=== PATIENT | female | born 1970 | race Two or more races ===

== ENCOUNTER → 2017-05-12 | Outpatient (CLI) | payer OTHER | LOC: FIMAGING 09:43 | PROVIDERS: ATTEND Family Medicine | DX: Z13.29 Encounter for screening for other suspected endocrine disorder (principal); N64.4 Mastodynia; Z85.3 Personal history of malignant neoplasm of breast | CPT/HCPCS: G0204 ==

== ENCOUNTER → 2017-06-17 | Outpatient (CLI) | payer OTHER | LOC: CIMAGING 15:11 | PROVIDERS: ATTEND Internal Medicine Hematology & Oncology | DX: R59.0 Localized enlarged lymph nodes (principal); M79.602 Pain in left arm; M79.89 Other specified soft tissue disorders; Z85.3 Personal history of malignant neoplasm of breast | CPT/HCPCS: 93971-PO ==

== ENCOUNTER → 2017-06-30 | Outpatient (CLI) | payer OTHER ==
[~2017-06-30] MED LIST: LIDOCAINE 1% 300 MG/30 ML SDV ONE
[2017-07-07 08:53] LABS: ACCESSION # HR17-36792; INTERPRETATION See Comments
== END ==
LOC: FIMAGING 12:31
PROVIDERS: ATTEND Internal Medicine Hematology & Oncology
PROC: 07B63ZX Excision of Left Axillary Lymphatic, Percutaneous Approach, Diagnostic (ICD-10-PCS; principal; 2017-06-30)
DX: C50.912 Malignant neoplasm of unspecified site of left female breast (principal)

== ENCOUNTER → 2017-07-22 | Outpatient (CLI) | payer OTHER ==
[~2017-07-22] MED LIST changes: +GADOBUTROL 10 ML VIAL IVP ONE; -LIDOCAINE 1% 300 MG/30 ML SDV ONE
== END ==
LOC: FIMAGING 07:08
PROVIDERS: ATTEND Radiology Radiation Oncology
DX: R51 Headache (principal); C50.919 Malignant neoplasm of unspecified site of unspecified female breast
CPT/HCPCS: A9585

== ENCOUNTER 2017-08-07 08:34 | Day surgery (SDC) | payer OTHER ==
[2017-08-07] MEDS ORDERED: LIDOCAINE 1% 300 MG/30 ML SDV ONE (09:15)
[2017-08-07] MEDS ORDERED: BACITRACIN ZINC 14.2 GM OINTTUBE TP ONE (09:15)
[2017-08-07] MEDS ORDERED: BUPIVACAINE 0.5% 30 ML SDV ONE (09:16)
[2017-08-07] MEDS ORDERED: SODIUM BICARBONATE 10 MEQ/10 ML SYR IVP ONE (09:16)
[2017-08-07] MEDS ORDERED: ceFAZolin 2 GM/DEXTROSE 100 ML IV ONE (09:26)
[2017-08-07] MEDS ORDERED: LR 1,000 ML IV ONE (09:36)
[2017-08-07] MEDS ORDERED: LIDOCAINE 1% 2 ML INJ ID PRN (09:36)
[2017-08-07] MEDS ORDERED: LIDOCAINE 2% 5 ML SDV ONE (11:11)
[2017-08-07] MEDS ORDERED: PROPOFOL 200 MG/20 ML VIAL ONE (11:11)
[2017-08-07] MEDS ORDERED: fentaNYL 100 MCG/2 ML INJ ONE (11:11)
--- NOTE | 2017-08-07 11:39 | PDHPUP ---
History & Physical Update H&P update statement: This history and physical update is based on an assessment of the patient which was completed after admission or registration (within 24 hours), but prior to the surgery/procedure. H&P update: H&P reviewed & patient examined, no change in patient's condition since H&P completed
[2017-08-07] MEDS ORDERED: MIDAZOLAM 2 MG/2 ML VIAL ONE (11:49)
[2017-08-07] MEDS ORDERED: MIDAZOLAM 2 MG/2 ML VIAL IVP ONE (11:51)
--- NOTE | 2017-08-07 11:52 | PDANEPAE ---
ANE History of Present Illness Patient presents for right sided port placement ANE Past Medical History - Pulmonary History Hx Oxygen in Use at Home: No Hx Sleep Apnea: No ANE Review of Systems Review of Systems: ANE Patient History - Allergies Allergies/Adverse Reactions: No Known Allergies Allergy (Unverified 10/16/09 13:47) - Home Medications Home medications: home medication list seen and reviewed Home Medications: Anti Nausea Med 11/16/09 [Last Taken Unknown] - NPO status NPO Status: no food or drink >8 hours NPO Since - Liquids (Date): 08/07/17 NPO Since - Liquids (Time): 07:00 NPO Since - Solids (Date): 08/27/17 NPO Since - Solids (Time): 17:00 - Anes Hx Anes Hx: post operative nausea - Smoking Hx Smoking Status: Never smoked ANE Labs/Vital Signs - Vital Signs Blood Pressure: 127/78 Heart Rate: 97 Respiratory Rate: 18 O2 Sat (%): 97 Height: 152.4 cm Weight: 60.781 kg ANE Physical Exam - Airway Neck exam: FROM Mallampati Score: Class 2 Mouth exam: normal dental/mouth exam - Pulmonary Pulmonary: no respiratory distress - Cardiovascular Cardiovascular: regular rate and rhythym - ASA Status ASA Status: II ANE Anesthesia Plan Anesthesia Plan: GA w LMA (RBA discussed)
[2017-08-07] MEDS ORDERED: PROPOFOL/EMULSION 500 MG/50 ML BOTTLE IV ONE (12:01)
[2017-08-07] MEDS ORDERED: ONDANSETRON 4 MG/2 ML VIAL ONE (12:12)
[2017-08-07] MEDS ORDERED: DEXAMETHASONE 4 MG/ML VIAL ONE (12:12)
[2017-08-07] MEDS ORDERED: ceFAZolin 1 GM VIAL ONE ×2 (12:12)
[2017-08-07] MEDS ORDERED: NALOXONE HCL 0.4 MG/ML INJ IVP PRN (12:34)
[2017-08-07] MEDS ORDERED: ONDANSETRON 4 MG/2 ML VIAL IVP PRN (12:34)
[2017-08-07] MEDS ORDERED: fentaNYL 100 MCG/2 ML INJ IVP PRN (12:34)
[2017-08-07] MEDS ORDERED: LR 500 ML IV PRN (12:34)
--- NOTE | 2017-08-07 12:59 | POSTANESTH ---
Post Anesthetic Evaluation Cardiovascular Status: Normal, Stable Respiratory Status: Normal, Stable Level of Consciousness/Mental Status: Can Participate in Eval Pain Control: Adequate, Prn Tx Ordered Nausea/Vomiting Control: Adequate, Prn Tx Ordered Complications Possibly Related to Anesthesia: None Noted
--- NOTE | 2017-08-07 13:11 | POSTOPPROG ---
Post Op Note Date of Operation: 08/07/17 Surgeon: Franki Rico Anesthesiologist: waylon Anesthesia: GET(General Endotracheal) Pre-op Diagnosis: recurrent breast cancer Post-op Diagnosis: same Indication: chemo access Procedure: rt subclavian port with flouro Findings: good position and flow Inf/Abcess present in the surg proc area at time of surgery?: No Depth: Deep Incisional (Fascial) EBL: Minimal Complications: 0
[2017-08-07] MEDS ORDERED: OXYCODONE/APAP 5/325 TAB PO PRN (13:18)
[2017-08-07 13:19] VITALS: TEMP 96.8
[2017-08-07 14:03] VITALS: BP 127/82; PULSE 92; RESP 15; O2SAT 99
--- NOTE | 2017-08-09 12:47 | GOP ---
[f rep st] OPERATIVE REPORT DATE OF OPERATION: 08/07/2017 SURGEON: Franki Rico MD LAMINATOR PREFORMS: None. ANESTHESIOLOGIST: Dr. Garcia. PREOPERATIVE DIAGNOSIS: POSTOPERATIVE DIAGNOSIS: PROCEDURE PERFORMED: Right subclavian port placement for chemotherapy access using fluoroscopic guid ance. FINDINGS: The patient was found to have good flow and good position. ESTIMATED BLOOD LOSS: Less than 20 cc. DESCRIPTION OF PROCEDURE: Patient was taken to the operating room where she received satisfactory ge neral endotracheal anesthesia by Dr. Garcia. Placed in supine position, prepped and draped in usual s terile fashion, then placed in Trendelenburg. A single stick was made in the right subclavian vein. Guidewire was introduced. Position was confirmed with fluoroscopy. A subcu pocket was made in the right anterior chest using the old previous port site pocket. Port tubing was passed from that pocke t to the subclavian insertion site, trimmed to the appropriate length using fluoroscopic guidance and introduced with the introducer sheath and dilator system over the guidewire. Good backflow was achi eved. The port was secured to the fascia with 3-0 Vicryl. Pocket was closed with 3-0 Vicryl for the subcu and a 4-0 Prolene subcuticular stitch. The entrance site was closed with Prolene mattress sut ure. The port was again flushed with heparin and saline and appeared to function well. She tolerate d the procedure well, was taken to the recovery room in good condition. There were no complications. /[id number]/MODL
== END 2017-08-07 13:46 | disposition home or self-care (01) ==
LOC: FSGY 08:34
PROVIDERS: ATTEND Surgery
PROC: B5161ZA Fluoroscopy of Right Subclavian Vein using Low Osmolar Contrast, Guidance (ICD-10-PCS; principal; 2017-08-07 10:15)
PROC: 0JH60XZ Insertion of Tunneled Vascular Access Device into Chest Subcutaneous Tissue and Fascia, Open Approach (ICD-10-PCS; principal; 2017-08-07 10:15)
PROC: 02HV33Z Insertion of Infusion Device into Superior Vena Cava, Percutaneous Approach (ICD-10-PCS; principal; 2017-08-07 10:15)
DX: C77.3 Secondary and unspecified malignant neoplasm of axilla and upper limb lymph nodes (principal); C50.912 Malignant neoplasm of unspecified site of left female breast
CPT/HCPCS: C1788; J0690; J1100; J1642; J2250; J2405; J2704; J3010

== ENCOUNTER → 2017-11-27 | Outpatient (CLI) | payer OTHER | LOC: BRMIMAGING 08:37 | PROVIDERS: ATTEND Internal Medicine Hematology & Oncology | DX: K80.20 Calculus of gallbladder without cholecystitis without obstruction (principal); K76.0 Fatty (change of) liver, not elsewhere classified; C50.912 Malignant neoplasm of unspecified site of left female breast | CPT/HCPCS: 76705-PO ==

== ENCOUNTER 2017-11-29 05:59 | Emergency (ER) | payer OTHER ==
[2017-11-29 06:06] VITALS: RESP 18; TEMP 98.1; O2SAT 98
[2017-11-29 06:39] LABS: PLATELET COUNT 216 10^3/uL (150-400)
--- NOTE | 2017-11-29 06:54 | EDPHY ---
H & P Stated Complaint: nausea, vomiting, back pain, oncologist recommended blood tests Time Seen by Provider: 11/29/17 06:26 HPI/ROS: Chief Complaint: Back pain, nausea HPI: 47-year-old woman with a history of recurrent breast cancer, currently under the care of Dr. Hoang. Patient has been having intermittent right-sided back pain with nausea vomiting for the past couple of weeks. She had an ultrasound on Thursday which showed gallstones with inflammation. Dr. Rico was consulted in the plan is for an elective outpatient cholecystectomy. The patient was started on Augmentin. She last had chemo 7 days ago in should be at her sarah. Patient woke this morning at 2 o'clock in the morning with severe right back pain exactly like the pain that she been having. She took a pain pill in the pain resolved after about 30 min, however she continued to have nausea throughout the morning which did not improved. She called her oncologist, Dr. Hoang, who instructed her to come to the emergency department for further evaluation. I received a phone call from Dr. Marroquin with requested the patient have a CBC done to see if she is at her sarah and she if she needs any further treatment. Currently the patient states she feels 100% improved. She does not have any pain. He is not currently have any nausea. She denies fevers or chills. No chest pain or shortness of breath. ROS: 10 point Review of Systems is negative except as noted in the HPI. PMH: Recurrent breast cancer, gallstones Social History: No smoking, no alcohol, no recreational drug use Family History: non-contributory Physical Exam: Gen: Awake, Alert, No Distress HEENT: Nose: no rhinorrhea Eyes: PERRLA, EOMI Mouth: Moist mucosa Neck: Supple, no JVD Chest: nontender, lungs clear to auscultation Heart: S1, S2 normal, no murmur Abd: Soft, non-tender, no guarding Back: no CVA tenderness, no midline tenderness Ext: no edema, non-tender Skin: no rash Neuro: CN II-XII intact, Sensation grossly intact, Strength 5/5 in bilateral upper and lower extremities - Personal History LMP (Females 10-55): Over 28 Days Ago Current Tetanus/Diphtheria Vaccine: Yes - Medical/Surgical History Hx Asthma: No Hx Chronic Respiratory Disease: No Hx Diabetes: No Hx Cardiac Disease: No Hx Renal Disease: No Hx Cirrhosis: No Hx Alcoholism: No Hx HIV/AIDS: No Hx Splenectomy or Spleen Trauma: No Other PMH: PMHx: breast cancer, gall stones. PSHx: lumpectomy, fibroids removed , 2 c sections - Social History Smoking Status: Never smoked Constitutional: Initial Vital Signs Temperature (C) 36.7 C 11/29/17 06:02 Heart Rate 72 11/29/17 06:02 Respiratory Rate 18 11/29/17 06:02 Blood Pressure 122/81 H 11/29/17 06:02 O2 Sat (%) 98 11/29/17 06:02 Allergies/Adverse Reactions: No Known Allergies Allergy (Unverified 10/16/09 13:47) Home Medications: Medication Instructions Recorded NK [No Known Home Meds] 11/29/17 Medical Decision Making ED Course/Re-evaluation: I have discussed with Dr. Hoang. She is agreement that as the patient's pain is resolved and her nausea is resolved no further treatment is needed. She would like a CBC done to see if she is neutropenic or will require any Neupogen at this time. I have relayed to her that her white count is currently 3.11 with 65% segmented neutrophils. Dr. Marroquin is happy with the plan to discharge to home. The patient will call her for any returns of pain or any other concerns. The patient will follow up with Dr. Rico this week. - Data Points Laboratory Results: Laboratory Results 11/29/17 06:31 11/29/17 06:31 WBC 3.11 10^3/uL L 10^3/uL (3.80-9.50) RBC 3.60 10^6/uL L 10^6/uL (4.18-5.33) Hgb 11.5 g/dL L g/dL (12.6-16.3) Hct 33.2 % L % (38.0-47.0) MCV 92.2 fL fL (81.5-99.8) MCH 31.9 pg pg (27.9-34.1) MCHC 34.6 g/dL g/dL (32.4-36.7) RDW 13.2 % % (11.5-15.2) Plt Count 216 10^3/uL 10^3/uL (150-400) MPV 10.4 fL fL (8.7-11.7) Neut % (Auto) 65.6 % % (39.3-74.2) Lymph % (Auto) 28.6 % % (15.0-45.0) [place] % (Auto) 2.6 % L % (4.5-13.0) Eos % (Auto) 1.9 % % (0.6-7.6) Baso % (Auto) 1.0 % % (0.3-1.7) Nucleat RBC Rel Count 0.0 % % (0.0-0.2) Absolute Neuts (auto) 2.04 10^3/uL 10^3/uL (1.70-6.50) Absolute Lymphs (auto) 0.89 10^3/uL L 10^3/uL (1.00-3.00) Absolute Monos (auto) 0.08 10^3/uL L 10^3/uL (0.30-0.80) Absolute Eos (auto) 0.06 10^3/uL 10^3/uL (0.03-0.40) Absolute Basos (auto) 0.03 10^3/uL 10^3/uL (0.02-0.10) Absolute Nucleated RBC 0.00 10^3/uL 10^3/uL (0-0.01) Immature Gran % 0.3 % % (0.0-1.1) Immature Gran # 0.01 10^3/uL 10^3/uL (0.00-0.10) Departure - Departure Disposition: Home, Routine, Self-Care Clinical Impression: Nausea, Biliary colic Condition: Good Instructions: Acute Nausea and Vomiting (ED) Additional Instructions: Please call Dr. Hoang immediately if your pain returns or you of uncontrolled nausea or vomiting. Referrals: Georgiana Arboleda MD [Primary Care Provider] - As per Instructions Marta Hoang MD [Medical Doctor] - As per Instructions
[2017-11-29 07:06] VITALS: BP 125/81; PULSE 82
== END 2017-11-29 07:06 | disposition home or self-care (01) ==
DX: K80.50 Calculus of bile duct without cholangitis or cholecystitis without obstruction (principal); Z85.3 Personal history of malignant neoplasm of breast

== ENCOUNTER 2017-12-04 09:15 | Day surgery (SDC) | payer OTHER ==
--- NOTE | 2017-12-01 21:20 | GHP ---
[f rep st] HISTORY AND PHYSICAL DATE OF ADMISSION: 12/03/2017 HISTORY OF PRESENT ILLNESS: The patient is a very pleasant female with recurrent breast cancer, who was recently seen in the emergency department and diagnosed with cholelithiasis. The patient reports she has had 2-3 attacks over the last couple months and has been seen in urgent care and emergency r oom. Had ultrasound recently which showed a stone in the gallbladder neck. The patient reports she has had intermittent pain the starts on the right side of her back and migrates to the left, accompan ied by nausea and vomiting. She was seen twice in the last week at [facility]. Dr. Courtney beth was briefly consulted during her last emergency department visit, and the patient elected to foll ow up as an outpatient to discuss possible cholecystectomy. She has had 2 previous C-sections, as we ll as surgery for fibroid removal, all done through a low suprapubic incision; otherwise no other abd ominal surgeries. Today, she reports she is feeling well; she placed herself on a light diet over in hopes to mitigate symptoms from the cholelithiasis. The patient's history is complicated, as she is undergoing treatment currently for recurrent breast c ancer. She was originally diagnosed in 2008. She underwent lumpectomy with axillary node dissection , received chemotherapy. In April 2017, she had pain and swelling in her left arm which was caused by an enlarged abnormal lymph node inferior to the left clavicle. This is recurrent cancer. She is cu rrently undergoing chemotherapy. PAST MEDICAL HISTORY: Breast cancer. ALLERGIES: No known drug allergies. MEDICATIONS: Ativan, Vicodin occasionally for pain, vitamin D3. PAST SURGICAL HISTORY: , fibroid removal, hemorrhoidectomy, recent port placement. SOCIAL HISTORY: The patient is a teacher in the [employer], 2 children, , never a smoker, no alcohol use. PHYSICAL EXAMINATION: GENERAL: Comfortable, nontoxic, nonjaundiced. HEAD AND NECK: No palpable ma sses, no lymphadenopathy. CHEST: CTA bilaterally. HEART: Regular rhythm and rate. ABDOMEN: Soft , nontender, negative Harding sign. EXTREMITIES: No lower extremity edema. Normal dorsalis pedis pu lse to palpation. LABORATORY STUDIES: From today at the time of this dictation, December 01, 2016, demonstrates white bl ood cell count of 2.0, hematocrit of 33, grossly normal liver function tests, other than a mildly yogesh vated alanine aminotransferase. RADIOLOGY: Ultrasound from the emergency department visit last week was reviewed, which shows multip le stones with a large stone in the gallbladder neck. Recent CT abdomen and pelvis report reviewed, which was negative for any acute findings and/or metastatic disease. IMPRESSION: Cholelithiasis/cholecystitis. PLAN: The patient was seen and examined by Dr. Rico in our office today on December 01, 2016, and had labs after her visit, which are noted above. The patient is tentatively scheduled for surgery 2016, although these laboratory studies will be reviewed by Dr. Rico prior to surgery. Concer reina is obviously the low white blood cell count. Risks of the surgery including common bile duct injury, bleeding, infection, bowel injury, were empha sized to the patient today, and the patient elects to proceed with scheduling surgery. /[id number]/MODL
[~2017-12-04 09:15] MED LIST changes: -GADOBUTROL 10 ML VIAL IVP ONE; +cefOXitin SODIUM 2 GM in D5W 100 ML IV ONE
--- NOTE | 2017-12-04 09:29 | PDHPUP ---
History & Physical Update H&P update statement: This history and physical update is based on an assessment of the patient which was completed after admission or registration (within 24 hours), but prior to the surgery/procedure. updated
[2017-12-04] MEDS ORDERED: cefOXitin SODIUM 2 GM in D5W 100 ML IV ONE (10:00)
[2017-12-04 10:27] VITALS: PULSE 79
--- NOTE | 2017-12-04 10:39 | PDANEPAE ---
ANE History of Present Illness Patient with a history of Breast Cancer stage 3 from 2008. No metastatic disease. Otherwise healthy, no issues with heart, kidneys. She has had general anesthesia with no nausea or vomiting. Mild cough no mucous, no fevers. She received two shots for her neutropenia last on 12/02, labs reviewed she is not neutropenic. ANE Past Medical History - Cardiovascular History Hx Hypertension: No Hx Arrhythmias: No Hx Chest Pain: No Hx Coronary Artery / Peripheral Vascular Disease: No Hx CHF / Valvular Disease: No Hx Palpitations: No - Pulmonary History Hx COPD: No Hx Asthma/Reactive Airway Disease: No Hx Recent Upper Respiratory Infection: No Hx Oxygen in Use at Home: No Hx Sleep Apnea: No Sleep Apnea Screening Result - Last Documented: Negative - Neurologic History Hx Cerebrovascular Accident: No Hx Seizures: No Hx Dementia: No - Endocrine History Hx Diabetes: No Endocrine History Comment: HX OF GESTATIONAL DIABETIES 2011, RESOLVED NOW - Renal History Hx Renal Disorders: No - Liver History Hx Hepatic Disorders: No - Neurological & Psychiatric Hx Hx Neurological and Psychiatric Disorders: No - Cancer History Hx Cancer: Yes Cancer History Comment: METASTATIC BREAST CA 2008 AND 2016 - Congenital Disorder History Hx Congenital Disorders: No - GI History Hx Gastrointestinal Disorders: No - Other Health History Other Health History: CHEMO RELATED ANEMIA - Surgical History Prior Surgeries: LUMPECTOMY 2008. R CHEST POWER PORT PLACEMENT 2008 & 07/2017. FIBROID REMOVAL 2006. 2010 &2011 ANE Review of Systems Review of Systems: - Exercise capacity METS (RN): 4 METS ANE Patient History - Allergies Allergies/Adverse Reactions: No Known Allergies Allergy (Verified 12/04/17 09:51) - Home Medications Home Medications: NK [No Known Home Meds] 11/29/17 [Last Taken Unknown] - NPO status NPO Since - Liquids (Date): 12/04/17 NPO Since - Liquids (Time): 07:30 NPO Since - Solids (Date): 12/03/17 NPO Since - Solids (Time): 20:00 - Smoking Hx Smoking Status: Never smoked - Family Anes Hx Family Hx Anesthesia Complications: NA ANE Labs/Vital Signs - Vital Signs Blood Pressure: 109/66 Heart Rate: 79 Respiratory Rate: 16 O2 Sat (%): 96 Height: 154.94 cm Weight: 63.503 kg ANE Physical Exam - Airway Neck exam: FROM Mallampati Score: Class 1 Mouth exam: normal dental/mouth exam, small mouth opening - Pulmonary Pulmonary: no respiratory distress - Cardiovascular Cardiovascular: regular rate and rhythym - ASA Status ASA Status: II
--- NOTE | 2017-12-04 10:42 | PDANEPAE ---
ANE Past Medical History - Cardiovascular History Hx Hypertension: No Hx Arrhythmias: No Hx Chest Pain: No Hx Coronary Artery / Peripheral Vascular Disease: No Hx CHF / Valvular Disease: No Hx Palpitations: No - Pulmonary History Hx COPD: No Hx Asthma/Reactive Airway Disease: No Hx Recent Upper Respiratory Infection: No Hx Oxygen in Use at Home: No Hx Sleep Apnea: No Sleep Apnea Screening Result - Last Documented: Negative - Neurologic History Hx Cerebrovascular Accident: No Hx Seizures: No Hx Dementia: No - Endocrine History Hx Diabetes: No Endocrine History Comment: HX OF GESTATIONAL DIABETIES 2011, RESOLVED NOW - Renal History Hx Renal Disorders: No - Liver History Hx Hepatic Disorders: No - Neurological & Psychiatric Hx Hx Neurological and Psychiatric Disorders: No - Cancer History Hx Cancer: Yes Cancer History Comment: METASTATIC BREAST CA 2008 AND 2016 - Congenital Disorder History Hx Congenital Disorders: No - GI History Hx Gastrointestinal Disorders: No - Other Health History Other Health History: CHEMO RELATED ANEMIA - Surgical History Prior Surgeries: LUMPECTOMY 2008. R CHEST POWER PORT PLACEMENT 2008 & 07/2017. FIBROID REMOVAL 2006. 2010 &2011 ANE Review of Systems Review of Systems: - Exercise capacity METS (RN): 4 METS ANE Patient History - Allergies Allergies/Adverse Reactions: No Known Allergies Allergy (Verified 12/04/17 09:51) - Home Medications Home Medications: NK [No Known Home Meds] 11/29/17 [Last Taken Unknown] - NPO status NPO Since - Liquids (Date): 12/04/17 NPO Since - Liquids (Time): 07:30 NPO Since - Solids (Date): 12/03/17 NPO Since - Solids (Time): 20:00 - Smoking Hx Smoking Status: Never smoked - Family Anes Hx Family Hx Anesthesia Complications: NA ANE Labs/Vital Signs - Vital Signs Blood Pressure: 109/66 Heart Rate: 79 Respiratory Rate: 16 O2 Sat (%): 96 Height: 154.94 cm Weight: 63.503 kg ANE Anesthesia Plan Anesthesia Plan: general endotracheal anesthesia
[2017-12-04] MEDS ORDERED: ALBUTEROL HFA ANES ONLY 200 PUFFS/8.5 GM MDI IH ONE (10:46)
[2017-12-04] MEDS ORDERED: PROPOFOL 200 MG/20 ML VIAL ONE (10:46)
[2017-12-04] MEDS ORDERED: ROCURONIUM 50 MG/5 ML VIAL ONE (10:46)
[2017-12-04] MEDS ORDERED: fentaNYL 100 MCG/2 ML INJ ONE ×2 (10:46→12:40)
[2017-12-04] MEDS ORDERED: MIDAZOLAM 2 MG/2 ML VIAL ONE (10:49)
[2017-12-04] MEDS ORDERED: BUPIVACAINE 0.5% 30 ML SDV ONE (11:11)
[2017-12-04] MEDS ORDERED: ONDANSETRON 4 MG/2 ML VIAL ONE (11:21)
[2017-12-04] MEDS ORDERED: PROMETHAZINE HCL 25 MG/ML INJ IVP PRN (11:27)
[2017-12-04] MEDS ORDERED: NEOSTIGMINE METHYLSULFATE 3 MG/3 ML SYR ONE (11:27)
[2017-12-04] MEDS ORDERED: OXYCODONE/APAP 5/325 TAB PO PRN ×2 (11:27→15:19)
[2017-12-04] MEDS ORDERED: NALOXONE HCL 0.4 MG/ML INJ IVP PRN ×2 (11:27→15:42)
[2017-12-04] MEDS ORDERED: ONDANSETRON 4 MG/2 ML VIAL IVP PRN ×2 (11:27→15:42)
[2017-12-04] MEDS ORDERED: GLYCOPYRROLATE 0.2 MG/1 ML VIAL ONE (11:27)
[2017-12-04] MEDS ORDERED: MEPERIDINE 25 MG/ML SYR IVP PRN (11:27)
[2017-12-04] MEDS: fentaNYL 100 MCG/2 ML INJ IVP PRN ×2 (12:44→13:00)
[2017-12-04] MEDS ORDERED: HYDROmorphONE/DILAUDID 1 MG/ML INJ ONE (13:03)
[2017-12-04] MEDS: HYDROmorphONE/DILAUDID 1 MG/ML INJ IVP PRN ×2 (13:05→13:55)
[2017-12-04 13:26] VITALS: O2SAT 100
--- NOTE | 2017-12-04 14:19 | POSTOPPROG ---
Post Op Note Date of Operation: 12/04/17 Surgeon: Franki Rico Pasteurizing Machine Operator: Freddie Sullivan Anesthesiologist: Dr Dyer Anesthesia: GET(General Endotracheal) Pre-op Diagnosis: cholecystitis, choledocolithiasis Post-op Diagnosis: same Indication: pain Procedure: lap juan r Findings: inflammed GB Inf/Abcess present in the surg proc area at time of surgery?: No Depth: Organ Space EBL: Minimal Specimen(s): GB
[2017-12-04 15:19] VITALS: TEMP 97.9
[2017-12-04 15:48] VITALS: BP 125/85; RESP 18
--- NOTE | 2017-12-06 04:25 | GOP ---
[f rep st] OPERATIVE REPORT DATE OF OPERATION: 12/04/2017 SURGEON: Franki Rico MD PREOPERATIVE DIAGNOSIS: Acute cholecystitis and cholelithiasis. POSTOPERATIVE DIAGNOSIS: Acute cholecystitis and cholelithiasis. PROCEDURE PERFORMED: Laparoscopic cholecystectomy. FINDINGS: The patient was found to have a mildly inflamed gallbladder with adhesions and a single large stone. Ducts were small. DESCRIPTION OF PROCEDURE: Patient was taken to the operating room where she received satisfactory general endotracheal anesthesia by Dr. Dyer. She was placed in supine position, prepped and draped in the usual sterile fashion. A periumbilical incision was made. A Veress needle was inserted. Pneumoperitoneum was established. Trocar was introduced. Laparoscope introduced. Good visualization was obtained. Two other trocars were placed in the upper abdomen under direct vision. The gallbladder was elevated up, adhesions were taken down until the entire gallbladder could be exposed. The cystic triangle was then carefully dissected free. The cystic duct was isolated as was the cystic artery. A good clear view was obtained. The gallbladder was freed off the bed and hepatic fossa. Both structures were multiply hemoclipped and divided with care to avoid injury to the common bile duct, which was clearly visualized. The peritoneum over the gallbladder was incised. The gallbladder was dissected free from the bed of the hepatic fossa and extracted through the upper midline port site. Hemostasis was assured. The wound was irrigated. Trocars removed under direct vision. Trocar sites were closed with 0 Vicryl for the fascia, 4-0 Monocryl subcuticular stitch for the skin, and all layers infiltrated with 0.5% Marcaine. Blood loss was negligible. She was taken to the recovery room in good condition. No complications. /[id number]/MODL MTDD
== END 2017-12-04 16:35 | disposition home or self-care (01) ==
LOC: FSGY 09:15
PROVIDERS: ATTEND Surgery
PROC: 0FT44ZZ Resection of Gallbladder, Percutaneous Endoscopic Approach (ICD-10-PCS; principal; 2017-12-04 12:15)
DX: K80.00 Calculus of gallbladder with acute cholecystitis without obstruction (principal); C79.81 Secondary malignant neoplasm of breast
CPT/HCPCS: J0694; J1170; J1642; J2250; J2405; J2704; J2710; J3010

== ENCOUNTER 2018-05-04 05:37 | Observation (INO) | payer OTHER ==
[2018-05-04] MEDS ORDERED: ceFAZolin 2 GM/DEXTROSE 100 ML IV ONE (05:55)
[2018-05-04] MEDS ORDERED: PHENAZOPYRIDINE HCL 200 MG TAB PO STA (05:55)
--- NOTE | 2018-05-04 06:00 | PDGENHP ---
History & Physical Chief Complaint: Preop: Robotically-assisted TLH, BSO, cystoscopy History of Present Illness: 47 yo who I met with in clinic regarding history of recurrent Stage IIIC, receptor-positive breast Ca - inquiring about benefit of ovary removal and/or hysterectomy given likely long-term Tamoxifen use. Discussed options and she'd like to move forward with hysterectomy and BSO. Pertinent Past, Social, Family History: Recurrent Stage IIIC receptor-positive breast Ca. Surgical history 2 csections, juan r, myomectomy. Relevant Physical Exam: NAD, RRR, LCTAB. Assessment & Plan Assessment: Preop: Robotically-assisted TLH, BSO, cysto. - Routine preop orders, weight-based Ancef. - 200mg Pyridium PO in PREOP to assist w cysto. - Likely home tomorrow AM. JOSUE
[2018-05-04] MEDS ORDERED: LIDOCAINE 1% 2 ML INJ ID PRN (06:08)
[2018-05-04] MEDS ORDERED: LR 1,000 ML IV ONE (06:08)
[2018-05-04] MEDS ORDERED: BUPIVACAINE 0.5% 30 ML SDV ONE (06:23)
[2018-05-04] MEDS ORDERED: EPINEPHrine 1 MG/ML INJ ONE (06:24)
[2018-05-04 06:46] LABS: PLATELET COUNT 179 10^3/uL (150-400)
--- NOTE | 2018-05-04 06:48 | PDANEPAE ---
ANE History of Present Illness 47 year old female presents for robotic assisted hysterectomy. ANE Past Medical History - Cardiovascular History Hx Hypertension: No Hx Arrhythmias: No Hx Chest Pain: No Hx Coronary Artery / Peripheral Vascular Disease: No Hx CHF / Valvular Disease: No Hx Palpitations: No - Pulmonary History Hx COPD: No Hx Asthma/Reactive Airway Disease: No Hx Recent Upper Respiratory Infection: No Hx Oxygen in Use at Home: No Hx Sleep Apnea: No Sleep Apnea Screening Result - Last Documented: Negative - Neurologic History Hx Cerebrovascular Accident: No Hx Seizures: No Hx Dementia: No - Endocrine History Hx Diabetes: No Hypothyroid: No Hyperthyroid: No Obesity: no Endocrine History Comment: HX OF GESTATIONAL DIABETIES 2011, RESOLVED NOW - Renal History Hx Renal Disorders: No - Liver History Hx Hepatic Disorders: No - Neurological & Psychiatric Hx Hx Neurological and Psychiatric Disorders: Yes Neurological / Psychiatric History Comment: 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 - Cancer History Hx Cancer: Yes Cancer History Comment: METASTATIC BREAST CA 2008 AND 2016 - Congenital Disorder History Hx Congenital Disorders: No - GI History Hx Gastrointestinal Disorders: No - Other Health History Other Health History: CHEMO RELATED ANEMIA - Chronic Pain History Chronic Pain: Yes (HEADACHES ON & OFF - NONE RECENT) - Surgical History Prior Surgeries: LUMPECTOMY 2008. R CHEST POWER PORT PLACEMENT 2008 & 07/2017. FIBROID REMOVAL 2006. 2010 &2011 ANE Review of Systems Review of systems is: negative Review of Systems: - Exercise capacity Exercise capacity: >=4 METS METS (RN): 4 METS ANE Patient History - Allergies Allergies/Adverse Reactions: No Known Allergies Allergy (Verified 12/04/17 09:51) - Home Medications Home medications: home medication list seen and reviewed Home Medications: Cholecalciferol Vit D3 [Vitamin D3 (*)] 1,000 units PO DAILY 04/02/18 [Last Taken Unknown] Letrozole [Femara 2.5 mg (*)] 2.5 mg PO DAILY 04/02/18 [Last Taken Unknown] Multivitamins [Multivitamin (*)] 1 each PO DAILY 04/02/18 [Last Taken Unknown] RX: Herbals/Supplements -Info Only 1 ea PO DAILY 04/02/18 [Last Taken Unknown] Vitamin B Complex [Vitamin B Complex (OTC)] 1 each PO DAILY 04/02/18 [Last Taken Unknown] - NPO status NPO Status: no food or drink >8 hours NPO Since - Liquids (Date): 05/03/18 NPO Since - Liquids (Time): 19:00 NPO Since - Solids (Date): 05/03/18 NPO Since - Solids (Time): 19:00 - Anes Hx Anes Hx: post operative nausea - Smoking Hx Smoking Status: Never smoked Marijuana use: No - Alcohol Use Alcohol Use: None - Family Anes Hx Family Anes Hx: neg - N/A Family Hx Anesthesia Complications: NA ANE Labs/Vital Signs - Labs Result Diagrams: 05/04/18 06:35 - Vital Signs Vital Signs: reviewed preoperatively; see RN documention for details Blood Pressure: 117/69 Heart Rate: 73 Respiratory Rate: 16 O2 Sat (%): 96 Height: 152.4 cm Weight: 62.596 kg ANE Physical Exam - Airway Neck exam: FROM Mallampati Score: Class 2 Mouth exam: normal dental/mouth exam - Pulmonary Pulmonary: no respiratory distress - Cardiovascular Cardiovascular: regular rate and rhythym - ASA Status ASA Status: III ANE Anesthesia Plan Anesthesia Plan: general endotracheal anesthesia
[2018-05-04] MEDS ORDERED: MIDAZOLAM 2 MG/2 ML VIAL IVP ONE (06:57)
[2018-05-04] MEDS ORDERED: SCOPOLAMINE HYDROBROMIDE 1 MG/3 DAYS PATCH TD SCH (07:00)
[2018-05-04] MEDS ORDERED: ROCURONIUM 50 MG/5 ML VIAL ONE (07:04)
[2018-05-04] MEDS ORDERED: LIDOCAINE 2% 5 ML SDV ONE (07:04)
[2018-05-04] MEDS ORDERED: fentaNYL 100 MCG/2 ML INJ ONE ×3 (07:04→10:05)
[2018-05-04] MEDS ORDERED: PROPOFOL 200 MG/20 ML VIAL ONE (07:04)
[2018-05-04] MEDS ORDERED: DEXAMETHASONE 4 MG/ML VIAL ONE (07:15)
[2018-05-04] MEDS ORDERED: LIDOCAINE 2% JELLY 5 ML TUBE ONE (07:15)
[2018-05-04] MEDS ORDERED: ONDANSETRON 4 MG/2 ML VIAL ONE (07:15)
[2018-05-04] MEDS ORDERED: DIAZEPAM 5 MG/ML 1 ML SYR IVP PRN (08:53)
[2018-05-04] MEDS ORDERED: ONDANSETRON 4 MG/2 ML VIAL IVP PRN ×2 (08:53→10:00)
[2018-05-04] MEDS ORDERED: LR 500 ML IV PRN (08:53)
[2018-05-04] MEDS ORDERED: NALOXONE HCL 0.4 MG/ML INJ IVP PRN (08:53)
[2018-05-04] MEDS ORDERED: PROMETHAZINE HCL 25 MG/ML INJ IVP PRN (08:53)
[2018-05-04] MEDS ORDERED: SUGAMMADEX SODIUM 200 MG/2 ML VIAL IVP ONE (09:11)
[2018-05-04] MEDS ORDERED: KETOROLAC 30 MG/1 ML SDV ONE (09:12)
--- NOTE | 2018-05-04 09:39 | SUROPNOTE ---
[facility] Operative Report - Surgery Date of Operation: 05/04/18 Surgeon: Jorge Luis Perdue Donor Relations Manager: JOSE Winchester Anesthesia: GET(General Endotracheal) Pre-op Diagnosis: Recurrent Stage IIIC receptor-positive Breast Ca, Tamoxifen use Post-op Diagnosis: Same, peritoneal nodulues Procedure: Robotically-assisted TLH, BSO, cysto Findings: Abnormal right tube, Stage I endometriosis L uterosacral, peritoneal noduls Inf/Abcess present in the surg proc area at time of surgery?: No EBL: 25cc Total fluids administered: 1000cc Complications: None Specimen(s): 1. Peritoneal biopsy (nodules) 2. Uterus, cervix, bilateral tubes and ovaries Additional CC's: Tianna Hart CSFA Technique: The patient was taken to the operating room where general anesthesia induced with an endotracheal tube. A time-out was performed. She was given weight-based antibiotics before any incisions were made as well as PO Pyridium in preop. She was positioned in low lithotomy in yellow-fin stirrups and an exam under anesthesia was performed. She was prepped and draped in normal sterile fashion. A Rodriguez catheter and uterine manipulator (VCare) were placed. Turning our attention to port placement, we began by marking and then injecting local anesthetic subcutaneously at our planned trocar sites. A 10mm incision was then made in the base of the umbilicus. A veress needle was placed intra abdominally while tenting up on the abdominal wall. Saline drop test was used to suggest intra-abdominal placement as well as low opening insufflation pressures. The abdomen was insufflated to 15 mmHg with CO2 gas. A robotic 8 mm camera trocar was then placed into the abdominal cavity directly with ease. Camera inserted and a scan of the abdominal cavity revealed no evidence of injury upon entry. Additional lateral ports were placed evenly space in an arc from that umbilical site - In the end she had 4 incisions in total, two robotic 8mm ports in the lower left and lower right, then 10mm camera port umbilicus, and LUQ assist port 10mm also. The patient was placed in steep Trendelenburg position and bowel flipped cephalad to provide excellent visualization of pelvic structures. Upon inspection of the abdomen, findings were as noted above. The robot was side-docked at the patient's hip and instruments introduced into the abdomen under direct visualization. Monopolar scissors as well as fenestrated bipolar forceps were used in addition to a tip-up grasper for the fourth arm. We began by directly visualizing peristalsing ureters on both sides - distant from our planned dissection sites. We first began by elevating and amputation the right fallopian tube using combination of monopolar and bipolar energy as well as cold scissors. Following this we came through the right utero -ovarian ligament and the right round - the anterior and posterior leaves of the broad ligament. Tho posterior leaf was brought down to the colpotomy cup and the anterior was brought down to the level of the peritoneal bladder reflection and then across to start the bladder flap to the midline. The uterine arteries on that side were skeletonized and cauterized, but not divided yet. We next turned our attention of the left side where the same procedure was performed in the same fashion - amputating the left tube, coming through the left lateral attachments to the uterus, and coming across with the anterior leaf of the broad on the left side to meet the dissection on the right completing the bladder flap. Then completed careful dissection of the bladder off the lower uterine segment and cervix which came down nicely with minimal scar tissue. The left uterines were skeletonized, cauterized and then divided. We lastly divided the right uterines. Following this the colpotomy cup was nicely visible circumferentially. The monopolar scissors were used to create the colpotomy - combination of cut and coag current. The uterus was removed vaginally with both fallopian tubes without issue. A [place] drainage bulb with a Vloc suture within it was placed in the vagina to maintain pneumoperitoneum during cuff closer. The suture was retrieved laparoscopically from the bulb - 180 0-Vlock and the vaginal cuff was closed laparoscopically with a single running stitch with care taken to include healthy bites of bilateral uterosacral ligaments to help prevent against future prolapse. The vaginal cuff and pedicles were then irrigated with normal saline and found to be hemostatic. Both ureters were seen to be freely peristalsing, distant from any surgical sites. The robot was undocked. The rodriguez was removed. Cystoscopy was performed confirming intact bladder with no apparent thermal or sharp injuries. Bilateral UOs demonstrated strong efflux of Pyridium-stained urine. Following this the rodriguez was not replaced, a vaginal packing was not placed. The trocars were removed and the abdomen was desufflated. The skin incisions were closed with 40 monocryl with single subcuticular stitches and then covered with Dermabond. The patient tolerated the procedure well. All sponge, lap and needle and instrument counts were announced as correct x2. The patient was taken to the PACU in stable condition. I was scrubbed and present for the entire case.
[2018-05-04] MEDS ORDERED: BISACODYL 10 MG SUPP PR PRN (10:00)
[2018-05-04] MEDS ORDERED: ONDANSETRON DISINTEGRATING 4 MG TAB PO PRN (10:00)
[2018-05-04] MEDS ORDERED: D5W LR 1,000 ML IV SCH (10:00)
[2018-05-04] MEDS ORDERED: ZOLPIDEM TARTRATE 5 MG TAB PO PRN (10:00)
[2018-05-04] MEDS ORDERED: TEMAZEPAM 15 MG CAP PO PRN (10:00)
[2018-05-04] MEDS ORDERED: LACTULOSE 20 GM/30 ML UDCUP PO PRN (10:00)
[2018-05-04] MEDS ORDERED: POLYETHYLENE GLYCOL 3350 17 GM PKT PO PRN (10:00)
[2018-05-04] MEDS ORDERED: MAGNESIUM HYDROXIDE 30 ML UDCUP PO PRN (10:00)
[2018-05-04] MEDS: fentaNYL 100 MCG/2 ML INJ IVP PRN ×2 (10:06→10:11)
[2018-05-04] MEDS ORDERED: HYDROmorphONE/DILAUDID 2 MG/ML INJ ONE (10:23)
[2018-05-04] MEDS: HYDROmorphONE/DILAUDID 2 MG/ML INJ IVP PRN ×2 (10:25→10:36)
[2018-05-04] MEDS ORDERED: ONDANSETRON DISINTEGRATING 4 MG TAB ONE (12:04)
[2018-05-04] MEDS: oxyCODONE IR 5 MG TAB PO PRN ×2 (12:39→17:04)
[2018-05-04] MEDS: ACETAMINOPHEN 500 MG TAB PO SCH ×2 (13:41→21:21)
[2018-05-04] MEDS: KETOROLAC 30 MG/1 ML SDV IVP SCH ×2 (15:10→21:20)
--- NOTE | 2018-05-04 15:39 | POSTANESTH ---
Post Anesthetic Evaluation Cardiovascular Status: Normal, Stable, Similar to Pre-Op Cond Respiratory Status: Normal, Stable, Similar to Pre-op Cond. Level of Consciousness/Mental Status: Can Participate in Eval, Alert and Oriented Pain Control: Adequate, Prn Tx Ordered Nausea/Vomiting Control: Adequate, Prn Tx Ordered Complications Possibly Related to Anesthesia: None Noted
[2018-05-04] MEDS: SENNOSIDES/DOCUSATE SODIUM TAB PO SCH (21:20)
[2018-05-05] MEDS: oxyCODONE IR 5 MG TAB PO PRN ×2 (00:44→10:52)
[2018-05-05] MEDS: KETOROLAC 30 MG/1 ML SDV IVP SCH ×2 (03:46→11:08)
[2018-05-05] MEDS: ACETAMINOPHEN 500 MG TAB PO SCH (05:32)
--- NOTE | 2018-05-05 08:25 | SOAPPROG ---
[facility] Progress Note Assessment/Plan: Assessment: Plan: Objective: Vital Signs Temp Pulse Resp BP Pulse Ox 37.2 C 68 16 91/54 L 94 05/05/18 05:30 05/05/18 05:30 05/05/18 05:30 05/05/18 05:30 05/05/18 05:30 Laboratory Results 05/05/18 05:30 05/04/18 05/05/18 05/06/18 05:59 05:59 05:59 Intake Total 2009 Output Total 4668 Balance -483
[2018-05-05] MEDS ORDERED: ENOXAPARIN 30 MG/0.3 ML SYR SC SCH (09:00)
[2018-05-05 09:23] VITALS: BP 100/65
[2018-05-05] MEDS ORDERED: KETOROLAC 30 MG/1 ML SDV IVP SCH (09:45)
[2018-05-05] MEDS ORDERED: IBUPROFEN 600 MG TAB PO SCH (10:04)
[2018-05-05] MEDS: SENNOSIDES/DOCUSATE SODIUM TAB PO SCH (11:08)
[2018-05-05] MEDS ORDERED: IBUPROFEN 800 MG TAB PO SCH (12:00)
[2018-05-07] MEDS ORDERED: PATCH REMOVAL 1 EA PATCH TD SCH (06:57)
== END 2018-05-05 11:09 | disposition home or self-care (01) ==
LOC: F3E 05:37 → FOB 11:49
PROVIDERS: ADMIT Obstetrics & Gynecology; ATTEND Obstetrics & Gynecology
PROC: 8E0W4CZ Robotic Assisted Procedure of Trunk Region, Percutaneous Endoscopic Approach (ICD-10-PCS; principal; 2018-05-04 07:15)
PROC: 0UTC4ZZ Resection of Cervix, Percutaneous Endoscopic Approach (ICD-10-PCS; principal; 2018-05-04 07:15)
PROC: 0WBH4ZX Excision of Retroperitoneum, Percutaneous Endoscopic Approach, Diagnostic (ICD-10-PCS; principal; 2018-05-04 07:15)
PROC: 0UT9FZZ Resection of Uterus, Via Natural or Artificial Opening With Percutaneous Endoscopic Assistance (ICD-10-PCS; principal; 2018-05-04 07:15)
PROC: 0UT2FZZ Resection of Bilateral Ovaries, Via Natural or Artificial Opening With Percutaneous Endoscopic Assistance (ICD-10-PCS; principal; 2018-05-04 07:15)
PROC: 0UT7FZZ Resection of Bilateral Fallopian Tubes, Via Natural or Artificial Opening With Percutaneous Endoscopic Assistance (ICD-10-PCS; principal; 2018-05-04 07:15)
DX: C50.919 Malignant neoplasm of unspecified site of unspecified female breast (principal); Z79.818 Long term (current) use of other agents affecting estrogen receptors and estrogen levels; Z17.0 Estrogen receptor positive status [ER+]; N80.8 Other endometriosis; G62.0 Drug-induced polyneuropathy; T45.1X5A Adverse effect of antineoplastic and immunosuppressive drugs, initial encounter
CPT/HCPCS: 49321; 58571; G0378; J0171; J0690; J1100; J1170; J1650; J1885; J2250; J2405; J2704; J3010

== ENCOUNTER → 2018-05-07 | Outpatient (CLI) | payer OTHER | LOC: FIMAGING 13:12 | PROVIDERS: ATTEND Internal Medicine Hematology & Oncology | DX: Z12.31 Encounter for screening mammogram for malignant neoplasm of breast (principal); Z85.3 Personal history of malignant neoplasm of breast ==

== ENCOUNTER → 2018-09-06 | Outpatient (CLI) | payer OTHER | LOC: FIMAGING 15:30 | PROVIDERS: ATTEND Internal Medicine Hematology & Oncology | DX: N63.21 Unspecified lump in the left breast, upper outer quadrant (principal); Z85.3 Personal history of malignant neoplasm of breast ==

== ENCOUNTER → 2018-11-07 | Outpatient (CLI) | payer OTHER | LOC: MERGE 09:33 → BMCIMAGING 09:33 → EDSEX 09:33 | PROVIDERS: ATTEND Family Medicine | DX: M79.672 Pain in left foot (principal) ==

== ENCOUNTER → 2019-05-20 | Outpatient (CLI) | payer OTHER | LOC: FIMAGING 09:29 ==

== ENCOUNTER → 2019-05-25 | Outpatient (CLI) | payer OTHER | LOC: FIMAGING 12:04 ==